=== PATIENT | male | born 1970 | race American Indian/Alaskan Native ===

== ENCOUNTER 2021-01-17 10:45 | Emergency (ER) | payer OTHER ==
[2021-01-17 11:31] VITALS: BP 120/79
--- NOTE | 2021-01-17 11:40 | Emergency Department Report ---
ED ENT HPI - General Chief complaint: Dental/Oral Stated complaint: TOOTHACHE Time Seen by Provider: 01/17/21 11:31 Source: patient Mode of arrival: Ambulatory Limitations: No Limitations - History of Present Illness Initial comments: Patient is a 50-year-old male presents emergency room complaints of left upper dental pain that began 2 days ago. He states he believes there may be an issue with a filling in the tooth. He states he last saw dentist approximately 5 years ago. He denies any fever, vomiting, diarrhea, difficulty swallowing, difficulty breathing. No past medical history. No allergies to medications. - Related Data Previous Rx's Medication Instructions Recorded Last Taken Type Chlorhexidine Mouthwash [Peridex] 15 ml MM BID #1 bottle 01/17/21 Unknown Rx Naproxen [EC-Naprosyn] 500 mg PO BID PRN #20 tablet. 01/17/21 Unknown Rx Penicillin Vk [Veetids TAB] 500 mg PO QID 7 Days #56 tablet 01/17/21 Unknown Rx Allergies Allergy/AdvReac Type Severity Reaction Status Date / Time No Known Allergies Allergy Unverified 01/17/21 11:28 ED Dental HPI - General Chief complaint: Dental/Oral Stated complaint: TOOTHACHE Time Seen by Provider: 01/17/21 11:31 Source: patient Mode of arrival: Ambulatory Limitations: No Limitations - Related Data Previous Rx's Medication Instructions Recorded Last Taken Type Chlorhexidine Mouthwash [Peridex] 15 ml MM BID #1 bottle 01/17/21 Unknown Rx Naproxen [EC-Naprosyn] 500 mg PO BID PRN #20 tablet. 01/17/21 Unknown Rx Penicillin Vk [Veetids TAB] 500 mg PO QID 7 Days #56 tablet 01/17/21 Unknown Rx Allergies Allergy/AdvReac Type Severity Reaction Status Date / Time No Known Allergies Allergy Unverified 01/17/21 11:28 ED Review of Systems ROS: Stated complaint: TOOTHACHE Other details as noted in HPI Comment: All other systems reviewed and negative ED Past Medical Hx - Past Medical History Previous Medical History?: No - Surgical History Past Surgical History?: Yes Additional Surgical History: shoulder, hand, hernia repair - Medications Home Medications: Home Medications Medication Instructions Recorded Confirmed Last Taken Type Chlorhexidine Mouthwash [Peridex] 15 ml MM BID #1 bottle 01/17/21 Unknown Rx Naproxen [EC-Naprosyn] 500 mg PO BID PRN #20 tablet. 01/17/21 Unknown Rx Penicillin Vk [Veetids TAB] 500 mg PO QID 7 Days #56 tablet 01/17/21 Unknown Rx ED Physical Exam - General Limitations: No Limitations General appearance: alert, in no apparent distress - Head Head exam: Present: atraumatic, normocephalic - Eye Eye exam: Present: normal appearance - ENT ENT exam: Present: normal orophraynx (no submandibular edema), mucous membranes moist, other (there are several fillings present, appears to have dental carries in the left upper molar, there are a few areas of hypertrophy and erythema of the gumline, no areas of fluctuance, uvula is midline, no uvular edema or deviation, no trismus, no tongue elevation, no muffed voice, ) - Respiratory Respiratory exam: Absent: respiratory distress, accessory muscle use - Neurological Exam Neurological exam: Present: alert, oriented X3 - Psychiatric Psychiatric exam: Present: normal affect, normal mood - Skin Skin exam: Present: warm, dry, intact ED Course Vital Signs 01/17/21 11:29 Temperature 98.8 F Pulse Rate 60 Respiratory 18 Rate Blood Pressure 120/79 [Right] O2 Sat by Pulse 99 Oximetry ED Medical Decision Making - Medical Decision Making Patient is a 50-year-old male presents emergency room complaints of left upper dental pain that began 2 days ago. He states he believes there may be an issue with a filling in the tooth. He states he last saw dentist approximately 5 years ago. He denies any fever, vomiting, diarrhea, difficulty swallowing, difficulty breathing. No past medical history. No allergies to medications. Vitals are normal. On exam:there are several fillings present, appears to have dental carries in the left upper molar, there are a few areas of hypertrophy and erythema of the gumline, no areas of fluctuance, uvula is midline, no uvular edema or deviation, no trismus, no tongue elevation, no muffed voice, no submandibular edema. Examination appears consistent with dental carry and early mild gingivitis. Patient given prescription for medications. Advised patient Please take medication as prescribed. Follow-up with a dentist. Return to emergency room for new or worsening symptoms. Critical care attestation.: If time is entered above; I have spent that time in minutes in the direct care of this critically ill patient, excluding procedure time. ED Disposition Clinical Impression: Dental caries, Gingivitis Disposition: - TO HOME OR SELFCARE Is pt being admited?: No Does the pt Need Aspirin: No Condition: Stable Additional Instructions: Please take medication as prescribed. Follow-up with a dentist. Return to emergency room for new or worsening symptoms. Prescriptions: Naproxen [EC-Naprosyn] 500 mg PO BID PRN #20 tablet. PRN Reason: pain Chlorhexidine Mouthwash [Peridex] 15 ml MM BID #1 bottle Penicillin Vk [Veetids TAB] 500 mg PO QID 7 Days #56 tablet Referrals: [facility] [Outside] - 2-3 Days [facility] [Outside] - 2-3 Days Time of Disposition: 11:39 Print Language: AMHARIC
== END 2021-01-17 12:15 | disposition home or self-care (01) ==
LOC: ED 10:45
DX: K05.10 Chronic gingivitis, plaque induced (principal); K02.9 Dental caries, unspecified; Z98.890 Other specified postprocedural states; Z79.899 Other long term (current) drug therapy
CPT/HCPCS: 99281